=== PATIENT | female | born 1955 | race Caucasian/White ===

== ENCOUNTER 2018-03-31 10:03 | Inpatient (IN) | payer MEDICAID ==
--- NOTE | 2018-03-31 13:56 | PCM.HP ---
H&P History of Present Illness - General Date of Service: 03/31/18 Admit Problem/Dx: Admission Diagnosis/Problem Admission Diagnosis/Problem Colonoscopy Source of Information: Other ([facility] staff) History Limitations: Reports: Other (deaf and blind, mostly nonverbal) - History of Present Illness Initial Comments - Free Text/Narative: Ms. Blackman is a 62 yo female admitted for preparation for a colonoscopy. She is a client of [facility] and has required admission in the past in order to the level of care needed to complete the colon prep. She is nonverbal so all information is obtained from staff and from the EMR. We had initially planned to try doing a Cologuard to avoid needing to prep and have the procedure. However, she was not willing to have a bowel movement into the hat so this was not successful. Upon further discussion, arrangements were made for her to be admitted here. Staff with her today note no past issues with completing the prep. She has been more than willing to drink the beverages and take the tablets. No recent illnesses. No prior issues undergoing anesthesia. - Related Data Allergies/Adverse Reactions: Allergies Allergy/AdvReac Type Severity Reaction Status Date / Time No Known Allergies Allergy Verified 03/31/18 08:54 Home Medications: Home Meds Amoxicillin 2,000 mg PO ASDIRECTED 03/31/18 [History] Aspirin [Halfprin] 81 mg PO DAILY 03/31/18 [History] Calcium Carbonate/Vitamin D3 [Caltrate 600 + D Soft Chew Tab] 1 tab PO WITHBREAKFAST 03/31/18 [History] Cetirizine HCl [Zyrtec] 5 mg PO DAILY 03/31/18 [History] Latanoprost [Xalatan 0.005% Ophth Soln] 1 drop EYEBOTH BEDTIME 03/31/18 [History ] Losartan [Cozaar] 50 mg PO DAILY 03/31/18 [History] Metoprolol Succinate 200 mg PO DAILY 03/31/18 [History] Multivitamin with Iron [Multivitamins with Iron] 1 tab PO DAILY 03/31/18 [ History] Sodium Fluoride [Sf 5000 Plus] 1 applic TOP DAILY 03/31/18 [History] Timolol Maleate [Timoptic 0.5% Ophth Soln] 1 drop EYEBOTH BID 03/31/18 [History] hydroCHLOROthiazide [Hydrochlorothiazide] 25 mg PO QAM 03/31/18 [History] Past Medical History HEENT History: Reports: Cataract, Hard of Hearing, Impaired Vision, Other (See Below) Other HEENT History: recurrent otitis externa. aphakia Cardiovascular History: Reports: Hypertension, Other (See Below) Other Cardiovascular History: mitral valve prolapse Respiratory History: Reports: Other (See Below) Other Respiratory History: chronic cough Gastrointestinal History: Reports: None Genitourinary History: Reports: None Musculoskeletal History: Reports: None Neurological History: Reports: None Psychiatric History: Reports: Other (See Below) Other Psychiatric History: moderate intellectual disability Endocrine/Metabolic History: Reports: None Hematologic History: Reports: None Immunologic History: Reports: None Oncologic (Cancer) History: Reports: None Dermatologic History: Reports: Eczema - Infectious Disease History Infectious Disease History: Reports: None - Past Surgical History GI Surgical History: Reports: Appendectomy, Colonoscopy Female Surgical History: Reports: Hysterectomy Social & Family History - Family History Cardiac: Reports: CAD - Tobacco Use Smoking Status *Q: Never Smoker Second Hand Smoke Exposure: No - Caffeine Use Caffeine Use: Reports: Coffee, Soda - Alcohol Use Alcohol Use History: No Alcohol Use in Last Twelve Months: No - Recreational Drug Use Recreational Drug Use: No - Living Situation & Occupation Living situation: Reports: Single, Extended Care Facility Occupation: Employed H&P Review of Systems - Review of Systems: Review Of Systems: Unable To Obtain (due to patient's nonverbal status) Exam - Exam Exam: See Below - Vital Signs Vital Signs: Last Vital Signs Temp 36.6 C 03/31/18 11:53 Pulse 98 03/31/18 11:53 Resp 18 03/31/18 11:53 BP 174/83 H 03/31/18 11:53 Pulse Ox 96 03/31/18 11:53 Weight: 68.492 kg - Exam General: Alert, Cooperative HEENT: Conjunctiva Clear, Mucosa Moist & [place] Neck: Supple, Trachea Midline. No: Lymphadenopathy, Thyromegaly Lungs: Clear to Auscultation, Normal Respiratory Effort Cardiovascular: Regular Rate, Regular Rhythm, Normal S1, Normal S2 GI/Abdominal Exam: Normal Bowel Sounds, Soft, Non-Tender, No Organomegaly, No Distention, No Mass Extremities: Non-Tender, No Pedal Edema, Normal Capillary Refill Peripheral Pulses: 2+: Radial (L), Radial (R) Skin: Warm, Dry, Intact *Q Meaningful Use (ADM) - VTE *Q VTE Anticoagulation Contraindications: Med/TX Not Indicated/Need - Problem List (1) Colonoscopy planned SNOMED Code(s): 017517580 ICD Code: [id number] - Status: Acute Current Visit: Yes (2) Moderate intellectual disability SNOMED Code(s): 755168920, 452078646 ICD Code: F71 - MODERATE INTELLECTUAL DISABILITIES Status: Chronic Current Visit: Yes (3) Hypertension SNOMED Code(s): 11737341 ICD Code: I10 - ESSENTIAL (PRIMARY) HYPERTENSION Status: Chronic Current Visit: Yes Qualifiers: Hypertension type: essential hypertension Qualified Code(s): I10 - Essential (primary) hypertension (4) Impaired fasting glucose SNOMED Code(s): 737090563 ICD Code: R73.01 - IMPAIRED FASTING GLUCOSE Status: Chronic Current Visit : Yes (5) Mitral valve prolapse SNOMED Code(s): 757650467 ICD Code: I34.1 - NONRHEUMATIC MITRAL (VALVE) PROLAPSE Status: Chronic Current Visit: Yes Problem List Initiated/Reviewed/Updated: Yes Orders Last 24hrs: Active Orders 24 hr Category Date Time Status Admission Status [Patient Status] [ADT] Routine ADT 03/31/18 11:51 Active Notify Provider Vital Signs [RC] ASDIRECTED Care 03/31/18 13:52 Ordered Oxygen Therapy [RC] PRN Care 03/31/18 13:52 Ordered Up With Assistance [RC] ASDIRECTED Care 03/31/18 13:52 Ordered VTE/DVT Education [RC] PER UNIT ROUTINE Care 03/31/18 13:52 Ordered Vital Signs [RC] PER UNIT ROUTINE Care 03/31/18 13:52 Ordered Clear Liquid Diet [DIET] Diet 03/31/18 Dinner Active NPO After Midnight [Nothing per Oral After Midnight Diet 04/01/18 Breakfast Active Diet] [DIET] Bisacodyl [Dulcolax] Med 03/31/18 18:00 Once 10 mg PO ONETIME ONE Latanoprost [Xalatan 0.005% Ophth Soln] Med 03/31/18 20:00 Ordered 1 drop EYEBOTH BEDTIME Metoprolol Succinate [Metoprolol Succinate] Med 04/01/18 08:00 Ordered 200 mg PO DAILY Polyethylene Glycol 3350 [MiraLAX] Med 03/31/18 16:00 Once 238 gm PO ONETIME ONE Timolol Maleate [Timoptic 0.5% Ophth Soln] Med 03/31/18 20:00 Ordered 1 drop EYEBOTH BID Anticoagulation Contraindications VTE [AST] Routine Oth 03/31/18 13:52 Ordered Resuscitation Status Routine Resus Stat 03/31/18 13:52 Ordered Medication Orders Bisacodyl (Dulcolax) 10 mg PO ONETIME ONE Stop: 03/31/18 18:01 Latanoprost (Xalatan 0.005% Ophth Soln) ml EYEBOTH BEDTIME LAMIN Non-Formulary Medication (Metoprolol Succinate [Metoprolol Succinate]) 200 mg PO DAILY LAMIN Polyethylene Glycol (Miralax) 238 gm PO ONETIME ONE Stop: 03/31/18 16:01 Timolol Maleate (Timoptic 0.5% Ophth Soln) ml EYEBOTH BID LAMIN Assessment/Plan Comment:: #1 Colonoscopy Planned #2 Moderate Intellectual Disability - Colonoscopy prep ordered. Patient brought supplies with her. - Procedure is planned for tomorrow morning. - Patient has done well in other environments in the past and staff are not concerned about her compliance. #3 Hypertension #4 Impaired Fasting Glucose - Will need to hold her anti-hypertensives tomorrow am. - She will have labs today for follow-up and to ensure ok to proceed with colonoscopy tomorrow. #5 Mitral Valve Prolapse - Does not need amoxicillin prior to colonoscopy. Patient is admitted to unskilled swing bed to undergo preparation for colonoscopy. Only her eye drops will be continued while admitted; all other medications held in preparation for procedure. She will be discharged tomorrow am to go to the procedure. Discussed code status with her mother (who is also her guardian) on admission - code status is DNR/DNI.
[2018-03-31] MEDS: Polyethylene Glycol 3350 Powder 238 GM Bot PO ONE (15:29)
[2018-03-31 15:33] LABS: CHLORIDE,CL 99 mmol/L (98-107); SODIUM,NA 137 mmol/L (136-145)
[2018-03-31 15:34] LABS: ANION GAP 14.2 mmol/L (10-20)
[2018-03-31] MEDS: Bisacodyl 5 MG Tab PO ONE (18:11)
[2018-03-31] MEDS: Latanoprost 0.005% Ophth Soln (own supply) EYEBOTH SCH (20:13)
[2018-03-31] MEDS: Timolol Maleate 0.5% Ophth Soln 5 ML Bottle EYEBOTH SCH (20:13)
[2018-04-01] MEDS ORDERED: METOPROLOL SUCCINATE 200 MG PO SCH (08:00)
[2018-04-01] MEDS ORDERED: Polyethylene Glycol 3350 Powder 238 GM Bot PO ONE (16:00)
== END 2018-04-01 08:00 | disposition home or self-care (01) | DRG 951 ==
LOC: VM.MS 11:51
PROVIDERS: ADMIT Family Medicine; ATTEND Family Medicine
DX: Z01.818 Encounter for other preprocedural examination (principal); F71 Moderate intellectual disabilities; I10 Essential (primary) hypertension; R73.01 Impaired fasting glucose; I34.1 Nonrheumatic mitral (valve) prolapse; Z66 Do not resuscitate; H91.3 Deaf nonspeaking, not elsewhere classified; H54.7 Unspecified visual loss; Z79.899 Other long term (current) drug therapy; Z79.82 Long term (current) use of aspirin
CPT/HCPCS: 36415; 80048; 80061; A9270-GY

== ENCOUNTER 2022-10-10 11:51 | Inpatient (IN) | payer MEDICARE, MEDICAID ==
[2022-10-10] MEDS ORDERED: cefTRIAXone 1 GM Vial IVPUSH ONE (12:06)
[2022-10-10] MEDS: dexAMETHasone 2 MG, dexAMETHasone 4 MG PO SCH ×2 (13:21)
[2022-10-10] MEDS ORDERED: Sodium Chloride 0.9% 1,000 ML IV SCH (13:30)
[2022-10-10] MEDS ORDERED: Carbidopa/Levodopa 25-100 MG Tab PO SCH ×2 (17:00→20:00)
[2022-10-10] MEDS ORDERED: Carbidopa/Levodopa 25-100 MG Tab PO ONE (18:15)
[2022-10-10] MEDS: Azithromycin 250 MG Tab PO SCH (18:17)
[2022-10-10] MEDS: Timolol Maleate 0.5% Ophth Soln 5 ML Bottle EYEBOTH SCH (21:11)
[2022-10-10] MEDS: Carbidopa/Levodopa 25-100 MG Tab PO SCH (21:11)
[2022-10-10] MEDS: Latanoprost 0.005% Ophth Soln 2.5 ML Bottle EYEBOTH SCH (21:26)
[2022-10-11] MEDS ORDERED: Benzonatate 100 MG Cap PO PRN (07:46)
[2022-10-11] MEDS: Carbidopa/Levodopa 25-100 MG Tab PO SCH ×4 (08:19→22:19)
[2022-10-11] MEDS: Enoxaparin 40 MG/0.4 ML Syringe SUBCUT SCH (08:20)
[2022-10-11] MEDS: dexAMETHasone 2 MG, dexAMETHasone 4 MG PO SCH ×2 (08:20)
[2022-10-11] MEDS: Loratadine 10 MG Tab PO SCH (08:20)
[2022-10-11] MEDS: Metoprolol Succinate 50 MG Tab.ER PO SCH (08:23)
[2022-10-11 08:28] LABS: ANION GAP 11.3 mmol/L (5-15)
[2022-10-11] MEDS: Potassium Chloride 20 MEQ Tab.ER PO SCH (12:36)
[2022-10-11] MEDS: Timolol Maleate 0.5% Ophth Soln 5 ML Bottle **OWN MED EYEBOTH SCH ×2 (12:36→22:19)
[2022-10-11] MEDS: Timolol Maleate 0.5% Ophth Soln 5 ML Bottle EYEBOTH SCH (13:20)
[2022-10-11] MEDS: Azithromycin 250 MG Tab PO SCH (18:32)
[2022-10-11] MEDS ORDERED: 50% Dextrose in Water 50 ML Syringe IVPUSH PRN (18:52)
[2022-10-11] MEDS ORDERED: Glucagon,Human Recombinant 1 MG Vial IM PRN (18:52)
[2022-10-11] MEDS: Insulin Glarg,Human.Rec.Analog 100 Unit/ML SUBCUT SCH ×2 (19:42→22:19)
[2022-10-11] MEDS: Latanoprost 0.005% Ophth Soln 2.5 ML Bottle EYEBOTH SCH (22:20)
[2022-10-12 09:04] LABS: ANION GAP 11.2 mmol/L (5-15)
[2022-10-12] MEDS: Carbidopa/Levodopa 25-100 MG Tab PO SCH ×4 (09:16→22:13)
[2022-10-12] MEDS: Potassium Chloride 20 MEQ Tab.ER PO SCH (09:16)
[2022-10-12] MEDS: dexAMETHasone 2 MG, dexAMETHasone 4 MG PO SCH ×2 (09:17)
[2022-10-12] MEDS: Loratadine 10 MG Tab PO SCH (09:17)
[2022-10-12] MEDS: Enoxaparin 40 MG/0.4 ML Syringe SUBCUT SCH (09:17)
[2022-10-12] MEDS: Metoprolol Succinate 50 MG Tab.ER PO SCH (09:17)
[2022-10-12] MEDS: Timolol Maleate 0.5% Ophth Soln 5 ML Bottle **OWN MED EYEBOTH SCH ×2 (09:18→22:11)
[2022-10-12] MEDS: cefTRIAXone 1 GM Vial IVPUSH SCH (12:24)
[2022-10-12] MEDS: Magnesium Oxide 400 MG Tab PO SCH (12:24)
[2022-10-12] MEDS: Azithromycin 250 MG Tab PO SCH (18:07)
[2022-10-12] MEDS: Latanoprost 0.005% Ophth Soln 2.5 ML Bottle **OWN MED EYEBOTH SCH (22:11)
[2022-10-12] MEDS: Insulin Glarg,Human.Rec.Analog 100 Unit/ML SUBCUT SCH (22:11)
[2022-10-13 07:27] LABS: ANION GAP 11.4 mmol/L (5-15)
[2022-10-13] MEDS: Magnesium Oxide 400 MG Tab PO SCH (08:34)
[2022-10-13] MEDS: Carbidopa/Levodopa 25-100 MG Tab PO SCH ×4 (08:34→20:20)
[2022-10-13] MEDS: Metoprolol Succinate 50 MG Tab.ER PO SCH (08:34)
[2022-10-13] MEDS: Loratadine 10 MG Tab PO SCH (08:34)
[2022-10-13] MEDS: Enoxaparin 40 MG/0.4 ML Syringe SUBCUT SCH (08:36)
[2022-10-13] MEDS: cefTRIAXone 1 GM Vial IVPUSH SCH (08:36)
[2022-10-13] MEDS: Timolol Maleate 0.5% Ophth Soln 5 ML Bottle **OWN MED EYEBOTH SCH ×2 (10:00→20:30)
[2022-10-13] MEDS: Azithromycin 250 MG Tab PO SCH (17:09)
[2022-10-13] MEDS: Losartan 50 MG Tab PO SCH (18:16)
[2022-10-13] MEDS: Hydrochlorothiazide 25 MG Tab PO SCH (18:16)
[2022-10-13] MEDS: Insulin Glarg,Human.Rec.Analog 100 Unit/ML SUBCUT SCH (20:34)
[2022-10-13] MEDS: Latanoprost 0.005% Ophth Soln 2.5 ML Bottle **OWN MED EYEBOTH SCH (20:42)
[2022-10-14] MEDS: cefTRIAXone 1 GM Vial IVPUSH SCH (10:46)
[2022-10-14] MEDS: Metoprolol Succinate 50 MG Tab.ER PO SCH (10:50)
[2022-10-14] MEDS: Hydrochlorothiazide 25 MG Tab PO SCH (10:50)
[2022-10-14] MEDS: Magnesium Oxide 400 MG Tab PO SCH (10:50)
[2022-10-14] MEDS: Enoxaparin 40 MG/0.4 ML Syringe SUBCUT SCH (10:51)
[2022-10-14] MEDS: Loratadine 10 MG Tab PO SCH (10:51)
[2022-10-14] MEDS: Losartan 50 MG Tab PO SCH (10:51)
[2022-10-14] MEDS: Timolol Maleate 0.5% Ophth Soln 5 ML Bottle **OWN MED EYEBOTH SCH (10:51)
[2022-10-14] MEDS: Carbidopa/Levodopa 25-100 MG Tab PO SCH (10:51)
== END 2022-10-14 14:20 | disposition swing bed (61) | DRG 871 ==
LOC: VM.MS 11:51
PROVIDERS: ADMIT Family Medicine; ATTEND Family Medicine
PROC: 3E03329 Introduction of Other Anti-infective into Peripheral Vein, Percutaneous Approach (ICD-10-PCS; principal; 2022-10-10)
PROC: 3E0DX3Z Introduction of Anti-inflammatory into Mouth and Pharynx, External Approach (ICD-10-PCS; 2022-10-10)
DX: A41.89 Other specified sepsis (principal); J15.9 Unspecified bacterial pneumonia; U07.1 COVID-19; R73.9 Hyperglycemia, unspecified; F71 Moderate intellectual disabilities; H54.3 Unqualified visual loss, both eyes; H91.93 Unspecified hearing loss, bilateral; R13.10 Dysphagia, unspecified; E66.09 Other obesity due to excess calories; I10 Essential (primary) hypertension; I34.1 Nonrheumatic mitral (valve) prolapse; E83.42 Hypomagnesemia; R73.03 Prediabetes; G20 Parkinson's disease; E87.6 Hypokalemia; F79 Unspecified intellectual disabilities; T38.0X5A Adverse effect of glucocorticoids and synthetic analogues, initial encounter; Z79.899 Other long term (current) drug therapy; Z79.82 Long term (current) use of aspirin; Z98.890 Other specified postprocedural states; Z90.710 Acquired absence of both cervix and uterus; Z68.30 Body mass index [BMI] 30.0-30.9, adult
CPT/HCPCS: 36415; 80048; 80053; 82565; 82728; 82947; 83605; 83735; 85025; 85027; 86140; 87040; 92610-GN; 97161-GP; 97165-GO; A9270-GY; J0696; J1650; J1815-GY; J8540

== ENCOUNTER 2022-10-14 11:21 | Inpatient (IN) | payer MEDICARE, MEDICAID ==
[2022-10-14] MEDS ORDERED: Benzonatate 100 MG Cap PO PRN (15:59)
[2022-10-14] MEDS: Carbidopa/Levodopa 25-100 MG Tab PO SCH ×2 (17:47→20:41)
[2022-10-14] MEDS ORDERED: Azithromycin 250 MG Tab PO SCH (18:00)
[2022-10-14] MEDS: Amoxicillin 875 MG Tab PO SCH (20:41)
[2022-10-14] MEDS: Timolol Maleate 0.5% Ophth Soln 5 ML Bottle EYEBOTH SCH (20:59)
[2022-10-14] MEDS: Latanoprost 0.005% Ophth Soln 2.5 ML Bottle EYEBOTH SCH (20:59)
[2022-10-15] MEDS: Magnesium Oxide 400 MG Tab PO SCH (09:36)
[2022-10-15] MEDS: Metoprolol Succinate 50 MG Tab.ER PO SCH (09:36)
[2022-10-15] MEDS: Amoxicillin 875 MG Tab PO SCH ×2 (09:36→20:02)
[2022-10-15] MEDS: Carbidopa/Levodopa 25-100 MG Tab PO SCH ×4 (09:37→20:02)
[2022-10-15] MEDS: Loratadine 10 MG Tab PO SCH (09:37)
[2022-10-15] MEDS: Losartan 50 MG Tab PO SCH (09:37)
[2022-10-15] MEDS: Hydrochlorothiazide 25 MG Tab PO SCH (09:37)
[2022-10-15] MEDS: Timolol Maleate 0.5% Ophth Soln 5 ML Bottle EYEBOTH SCH ×2 (09:39→21:19)
[2022-10-15] MEDS: Latanoprost 0.005% Ophth Soln 2.5 ML Bottle EYEBOTH SCH (21:18)
[2022-10-16] MEDS: Metoprolol Succinate 50 MG Tab.ER PO SCH (08:28)
[2022-10-16] MEDS: Carbidopa/Levodopa 25-100 MG Tab PO SCH ×4 (08:29→20:58)
[2022-10-16] MEDS: Amoxicillin 875 MG Tab PO SCH ×2 (08:29→20:58)
[2022-10-16] MEDS: Hydrochlorothiazide 25 MG Tab PO SCH (08:29)
[2022-10-16] MEDS: Losartan 50 MG Tab PO SCH (08:29)
[2022-10-16] MEDS: Magnesium Oxide 400 MG Tab PO SCH (08:30)
[2022-10-16] MEDS: Loratadine 10 MG Tab PO SCH (08:30)
[2022-10-16] MEDS: Timolol Maleate 0.5% Ophth Soln 5 ML Bottle EYEBOTH SCH ×2 (08:30→21:08)
[2022-10-16] MEDS: Latanoprost 0.005% Ophth Soln 2.5 ML Bottle EYEBOTH SCH (21:08)
[2022-10-17] MEDS: Carbidopa/Levodopa 25-100 MG Tab PO SCH ×4 (08:17→21:01)
[2022-10-17] MEDS: Hydrochlorothiazide 25 MG Tab PO SCH (08:17)
[2022-10-17] MEDS: Loratadine 10 MG Tab PO SCH (08:17)
[2022-10-17] MEDS: Losartan 50 MG Tab PO SCH (08:17)
[2022-10-17] MEDS: Magnesium Oxide 400 MG Tab PO SCH (08:17)
[2022-10-17] MEDS: Metoprolol Succinate 50 MG Tab.ER PO SCH (08:17)
[2022-10-17] MEDS: Timolol Maleate 0.5% Ophth Soln 5 ML Bottle EYEBOTH SCH ×2 (08:18→21:00)
[2022-10-17] MEDS: Latanoprost 0.005% Ophth Soln 2.5 ML Bottle EYEBOTH SCH (21:00)
[2022-10-18] MEDS: Carbidopa/Levodopa 25-100 MG Tab PO SCH ×4 (08:15→20:42)
[2022-10-18] MEDS: Losartan 50 MG Tab PO SCH (08:15)
[2022-10-18] MEDS: Magnesium Oxide 400 MG Tab PO SCH (08:15)
[2022-10-18] MEDS: Loratadine 10 MG Tab PO SCH (08:16)
[2022-10-18] MEDS: Metoprolol Succinate 50 MG Tab.ER PO SCH (08:16)
[2022-10-18] MEDS: Hydrochlorothiazide 25 MG Tab PO SCH (08:16)
[2022-10-18] MEDS: Timolol Maleate 0.5% Ophth Soln 5 ML Bottle EYEBOTH SCH ×2 (08:55→20:43)
[2022-10-18] MEDS: Latanoprost 0.005% Ophth Soln 2.5 ML Bottle EYEBOTH SCH (20:43)
[2022-10-19] MEDS: Hydrochlorothiazide 25 MG Tab PO SCH (08:22)
[2022-10-19] MEDS: Metoprolol Succinate 50 MG Tab.ER PO SCH (08:22)
[2022-10-19] MEDS: Losartan 50 MG Tab PO SCH (08:22)
[2022-10-19] MEDS: Loratadine 10 MG Tab PO SCH (08:22)
[2022-10-19] MEDS: Carbidopa/Levodopa 25-100 MG Tab PO SCH ×4 (08:22→20:02)
[2022-10-19] MEDS: Magnesium Oxide 400 MG Tab PO SCH (08:22)
[2022-10-19] MEDS: Timolol Maleate 0.5% Ophth Soln 5 ML Bottle EYEBOTH SCH ×2 (08:24→20:05)
[2022-10-19] MEDS: Latanoprost 0.005% Ophth Soln 2.5 ML Bottle EYEBOTH SCH (20:01)
[2022-10-20] MEDS: Hydrochlorothiazide 25 MG Tab PO SCH (08:38)
[2022-10-20] MEDS: Carbidopa/Levodopa 25-100 MG Tab PO SCH ×4 (08:38→20:11)
[2022-10-20] MEDS: Metoprolol Succinate 50 MG Tab.ER PO SCH (08:38)
[2022-10-20] MEDS: Magnesium Oxide 400 MG Tab PO SCH (08:38)
[2022-10-20] MEDS: Losartan 50 MG Tab PO SCH (08:39)
[2022-10-20] MEDS: Loratadine 10 MG Tab PO SCH (08:39)
[2022-10-20] MEDS: Timolol Maleate 0.5% Ophth Soln 5 ML Bottle EYEBOTH SCH ×2 (08:40→20:10)
[2022-10-20] MEDS: Latanoprost 0.005% Ophth Soln 2.5 ML Bottle EYEBOTH SCH (20:14)
[2022-10-21] MEDS: Hydrochlorothiazide 25 MG Tab PO SCH (08:56)
[2022-10-21] MEDS: Losartan 50 MG Tab PO SCH (08:56)
[2022-10-21] MEDS: Carbidopa/Levodopa 25-100 MG Tab PO SCH ×4 (08:56→20:10)
[2022-10-21] MEDS: Magnesium Oxide 400 MG Tab PO SCH (08:56)
[2022-10-21] MEDS: Metoprolol Succinate 50 MG Tab.ER PO SCH (08:57)
[2022-10-21] MEDS: Timolol Maleate 0.5% Ophth Soln 5 ML Bottle EYEBOTH SCH ×2 (08:57→20:11)
[2022-10-21] MEDS: Loratadine 10 MG Tab PO SCH (08:57)
[2022-10-21] MEDS: Latanoprost 0.005% Ophth Soln 2.5 ML Bottle EYEBOTH SCH (20:11)
[2022-10-22] MEDS: Metoprolol Succinate 50 MG Tab.ER PO SCH (08:06)
[2022-10-22] MEDS: Loratadine 10 MG Tab PO SCH (08:06)
[2022-10-22] MEDS: Hydrochlorothiazide 25 MG Tab PO SCH (08:06)
[2022-10-22] MEDS: Losartan 50 MG Tab PO SCH (08:06)
[2022-10-22] MEDS: Carbidopa/Levodopa 25-100 MG Tab PO SCH ×4 (08:06→20:12)
[2022-10-22] MEDS: Timolol Maleate 0.5% Ophth Soln 5 ML Bottle EYEBOTH SCH ×2 (08:07→20:16)
[2022-10-22] MEDS: Magnesium Oxide 400 MG Tab PO SCH (08:07)
[2022-10-22 13:26] LABS: ANION GAP 14.6 mmol/L (5-15)
[2022-10-22] MEDS: Latanoprost 0.005% Ophth Soln 2.5 ML Bottle EYEBOTH SCH (20:11)
[2022-10-23] MEDS: Carbidopa/Levodopa 25-100 MG Tab PO SCH ×2 (08:09→12:51)
[2022-10-23] MEDS: Loratadine 10 MG Tab PO SCH (08:09)
[2022-10-23] MEDS: Metoprolol Succinate 50 MG Tab.ER PO SCH (08:09)
[2022-10-23] MEDS: Magnesium Oxide 400 MG Tab PO SCH (08:09)
[2022-10-23] MEDS: Hydrochlorothiazide 25 MG Tab PO SCH (08:09)
[2022-10-23] MEDS: Losartan 50 MG Tab PO SCH (08:09)
[2022-10-23] MEDS: Timolol Maleate 0.5% Ophth Soln 5 ML Bottle EYEBOTH SCH (08:10)
== END 2022-10-23 15:10 | disposition home or self-care (01) | DRG 948 ==
LOC: VM.MS 14:21
PROVIDERS: ADMIT Family Medicine; ATTEND Family Medicine
DX: R53.81 Other malaise (principal); I10 Essential (primary) hypertension; R73.01 Impaired fasting glucose; I34.1 Nonrheumatic mitral (valve) prolapse; F71 Moderate intellectual disabilities; G20 Parkinson's disease; E16.2 Hypoglycemia, unspecified; E66.09 Other obesity due to excess calories; Z68.30 Body mass index [BMI] 30.0-30.9, adult; Z79.82 Long term (current) use of aspirin; Z79.899 Other long term (current) drug therapy; Z90.710 Acquired absence of both cervix and uterus; Z90.49 Acquired absence of other specified parts of digestive tract; Z98.890 Other specified postprocedural states
CPT/HCPCS: 36415; 80048; 82947; 85025; 97110-GP; 97116-GP; 97530-GP; 97535-GO; A9270-GY